=== PATIENT | male | born 1995 | race Caucasian/White ===

== ENCOUNTER 2018-01-09 13:57 | Inpatient (IN) | payer OTHER ==
[~2018-01-09] VITALS: Ht 175.3 cm; Wt 64.9 kg
[2018-01-09 16:00] LABS: EOSINOPHILS % 0.6 % (0.0-5.0); HEMATOCRIT. 48.4 % (42.0-52.0); HEMOGLOBIN. 16.6 g/dL (14.0-18.0); LYMPHOCYTES % 43.1 % (20.0-50.0); MEAN CORPUSCULAR HEMOGLOBIN 31.1 pg (28.0-32.0); MEAN CORPUSCULAR VOLUME 90.6 fL (80.0-94.0); MEAN PLATELET VOLUME 8.3 fl (7.4-10.4); MONOCYTES % 4.9 % (2.0-8.0); NEUTROPHILS % 50.4 % (40.0-76.0); PLATELET 300 x1000/uL (130-400); RED BLOOD CELL COUNT 5.35 mill/uL (4.7-6.1); RED CELL DISTRIBUTION WIDTH 14.4 % (11.6-14.6)
[2018-01-09 16:08] LABS: PROTHROMBIN TIME 10.3 sec (9.1-11.1)
[2018-01-09 16:09] LABS: CHLORIDE 101 mEq/L (98-107)
[2018-01-09 16:16] LABS: AMMONIA 46 uMol/L (<32)
[2018-01-09 16:51] LABS: CLARITY URINE CLEAR (CLEAR); COLOR URINE YELLOW (YELLOW); KETONES URINE NEGATIVE (NEGATIVE); LEUKOCYTE ESTERASE URINE NEGATIVE (NEGATIVE); NITRITE URINE NEGATIVE (NEGATIVE); OCCULT BLOOD URINE NEGATIVE (NEGATIVE); PROTEIN URINE NEGATIVE (NEGATIVE); SPECIFIC GRAVITY URINE 1.007 (1.005-1.030); UROBILINOGEN URINE 0.2 E.U./dL (0.2-1.0)
[2018-01-09 17:13] LABS: OPIATES URINE SCREEN NEGATIVE (NEGATIVE); PHENCYCLIDINE URINE SCREEN NEGATIVE (NEGATIVE)
[2018-01-09 17:15] LABS: *AMPHETAMINES SCREEN URINE NEGATIVE (NEGATIVE); *BARBITURATES SCREEN URINE NEGATIVE (NEGATIVE); *BENZODIAZEPINES SCREEN URINE NEGATIVE (NEGATIVE); *COCAINE SCREEN URINE NEGATIVE (NEGATIVE); CANNABINOID URINE SCREEN NEGATIVE (NEGATIVE); METHADONE URINE SCREEN NEGATIVE (NEGATIVE)
[2018-01-09] MEDS ORDERED: LEVETIRACETAM 500MG PREMIX 100 ML IV ONE (18:45)
[2018-01-09] MEDS ORDERED: LORAZEPAM 2MG/ML CPJ IV PRN (20:15)
[2018-01-09] MEDS ORDERED: MAGNESIUM/ALUMINUM HYDROXIDE/SIMETHICONE 30ML UDC PO PRN (20:15)
[2018-01-09] MEDS ORDERED: ONDANSETRON HCL 4MG/2ML INJ IV PRN (20:15)
[2018-01-09] MEDS ORDERED: ACETAMINOPHEN 325MG TABLET PO PRN (20:15)
[2018-01-09 21:15] VITALS: BP 134/74
[2018-01-09] MEDS ORDERED: LEVE750T10 PO (21:19)
[2018-01-09] MEDS ORDERED: [UNRECOGNIZED DRUG - OTHER] PO (21:23)
[2018-01-09] MEDS ORDERED: VENL150C2 PO (21:25)
[2018-01-09] MEDS ORDERED: MIRT-91 PO (21:25)
[2018-01-09] MEDS ORDERED: CLONAZEPAM 1MG TABLET PO PRN (21:45)
[2018-01-09] MEDS: SODIUM CHLORIDE 0.9% 1,000 ML IV SCH (21:45)
[2018-01-09 22:58] VITALS: BP 134/74
[2018-01-09] MEDS: LEVETIRACETAM 500 MG in SODIUM CHLORIDE 0.9% 100 ML IV SCH (23:40)
[2018-01-09] MEDS: SODIUM CHLORIDE 0.9% INJ 3ML FLUSH IVF SCH (23:49)
[2018-01-09] MEDS: MVI, ADULT NO.1 10 ML, FOLIC ACID 1 MG, THIAMINE HCL 100 MG in SODIUM CHLORIDE 0.9% 1,0... IV NR ×4 (23:49)
[2018-01-10] VITALS: BP 108/70
[2018-01-10] MEDS ORDERED: IBUPROFEN 200MG TABLET PO PRN (00:15)
[2018-01-10] MEDS ORDERED: LORAZEPAM 2MG/ML CPJ IV PRN (00:15)
[2018-01-10] MEDS: MVI, ADULT NO.1 10 ML, FOLIC ACID 1 MG, THIAMINE HCL 100 MG in SODIUM CHLORIDE 0.9% 1,0... IV NR ×4 (00:49)
[2018-01-10 04:00] VITALS: BP 111/65
[2018-01-10] MEDS ORDERED: PNEUMOCOCCAL 23-VAL P-SAC VAC 0.5 ML IM ONE (05:00)
[2018-01-10] MEDS: SODIUM CHLORIDE 0.9% INJ 3ML FLUSH IVF SCH ×3 (05:35→22:22)
[2018-01-10 05:49] LABS: BASOPHILS % 0.8 % (0.0-2.0); EOSINOPHILS % 0.7 % (0.0-5.0); HEMATOCRIT. 41.7 % (42.0-52.0); HEMOGLOBIN. 14.4 g/dL (14.0-18.0); LYMPHOCYTES % 40.8 % (20.0-50.0); MEAN CORPUSCULAR HEMOGLOBIN 31.7 pg (28.0-32.0); MEAN CORPUSCULAR VOLUME 91.4 fL (80.0-94.0); MEAN PLATELET VOLUME 8.4 fl (7.4-10.4); MONOCYTES % 6.2 % (2.0-8.0); NEUTROPHILS % 51.5 % (40.0-76.0); PLATELET 249 x1000/uL (130-400); RED BLOOD CELL COUNT 4.56 mill/uL (4.7-6.1); RED CELL DISTRIBUTION WIDTH 14.1 % (11.6-14.6)
[2018-01-10] MEDS ORDERED: INFLUENZA VIRUS VACCINE(AFLURIA) 0.5ML SYR IM ONE (06:00)
[2018-01-10] MEDS: CLONAZEPAM 1MG TABLET PO PRN ×2 (06:49→16:38)
[2018-01-10 07:13] LABS: CHLORIDE 101 mEq/L (98-107)
[2018-01-10 07:39] LABS: T4 FREE 0.72 ng/dL (0.76-1.46)
[2018-01-10 08:00] VITALS: BP 116/69
[2018-01-10] MEDS ORDERED: VENLAFAXINE HCL 37.5MG TABLET PO SCH (09:00)
[2018-01-10] MEDS: LEVETIRACETAM 500 MG in SODIUM CHLORIDE 0.9% 100 ML IV SCH (09:51)
[2018-01-10 12:00] VITALS: BP 120/66
[2018-01-10] MEDS: THIAMINE HCL 100MG TABLET PO SCH (12:08)
[2018-01-10] MEDS: MULTIVITAMINS,THER W-MINERALS TABLET PO SCH (12:08)
[2018-01-10] MEDS: FOLIC ACID 1MG TABLET PO SCH (12:08)
[2018-01-10] MEDS ORDERED: MAGNESIUM SULFATE 2 GM in DEXTROSE 5% WATER 50 ML IV SCH (14:00)
[2018-01-10 16:00] VITALS: BP 125/67
[2018-01-10 20:00] VITALS: BP 130/79
[2018-01-10] MEDS: SODIUM CHLORIDE 0.9% 1,000 ML IV SCH ×2 (20:51→22:22)
[2018-01-10] MEDS: LEVETIRACETAM 1,000 MG in SODIUM CHLORIDE 0.9% 100 ML IV SCH (20:51)
[2018-01-11] VITALS: BP 127/75
[2018-01-11] MEDS: CLONAZEPAM 1MG TABLET PO PRN (00:48)
[2018-01-11 04:00] VITALS: BP 126/80
[2018-01-11] MEDS: SODIUM CHLORIDE 0.9% INJ 3ML FLUSH IVF SCH ×2 (05:45→13:45)
[2018-01-11] MEDS: SODIUM CHLORIDE 0.9% 1,000 ML IV SCH ×2 (06:13→13:45)
[2018-01-11 08:00] VITALS: BP 118/66
[2018-01-11] MEDS: FOLIC ACID 1MG TABLET PO SCH (08:54)
[2018-01-11] MEDS: MULTIVITAMINS,THER W-MINERALS TABLET PO SCH (08:54)
[2018-01-11] MEDS: THIAMINE HCL 100MG TABLET PO SCH (08:54)
[2018-01-11] MEDS: LEVETIRACETAM 1,000 MG in SODIUM CHLORIDE 0.9% 100 ML IV SCH (08:55)
[2018-01-11 12:00] VITALS: BP 123/78
[2018-01-11 16:00] VITALS: BP 124/69
[2018-01-11] MEDS ORDERED: KEPP500 MT (17:08)
[2018-01-11 17:09] VITALS: BP 128/70
== END 2018-01-11 18:15 | disposition home or self-care (01) | DRG 100 ==
LOC: ER 14:28 → 5WST 17:26 → ENRESERV 18:59 → EDBEDREQ 20:45
PROVIDERS: ADMIT Internal Medicine; ATTEND Internal Medicine
DX: G40.909 Epilepsy, unspecified, not intractable, without status epilepticus (principal); G92 Toxic encephalopathy; F31.9 Bipolar disorder, unspecified; F10.10 Alcohol abuse, uncomplicated; Z79.899 Other long term (current) drug therapy; Z81.8 Family history of other mental and behavioral disorders
CPT/HCPCS: 36415; 70544; 70553; 71045; 80048; 80305; 82140; 82542; 82962; 83605; 83735; 83880; 84100; 84439; 84443; 84484; 90686; 90732; 93005; 96365; 99285; G0482; J1953; J3411; J3475; J3490; J7030; J7050; J7060